=== PATIENT | female | born 1950 | race Caucasian/White ===

== ENCOUNTER → 2018-07-30 | Outpatient (CLI) | payer OTHER | END | disposition home or self-care (01) | LOC: OIH 14:28 | PROVIDERS: ATTEND Internal Medicine Cardiovascular Disease | DX: Z13.6 Encounter for screening for cardiovascular disorders (principal) | CPT/HCPCS: 75571 ==

== ENCOUNTER 2019-06-24 06:48 | Day surgery (SDC) | payer MEDICARE ==
[~2019-06-24] VITALS: Ht 172.7 cm; Wt 89.4 kg
[~2019-06-24 06:48] MED LIST: SODIUM CHLORIDE 0.9% 1000ML 1,000 ML IV ONE
[2019-06-24 07:56] VITALS: BP 142/67
[2019-06-24] MEDS ORDERED: LEVO75TA10 PO (08:16)
[2019-06-24] MEDS ORDERED: ESTR1TAB17 PO (08:16)
[2019-06-24] MEDS ORDERED: ZOLP5TAB2 PO (08:16)
[2019-06-24] MEDS ORDERED: DOCU50CA13 PO (08:16)
[2019-06-24] MEDS ORDERED: ANTIVERT PO (08:16)
[2019-06-24] MEDS ORDERED: MONT10TA26 PO (08:16)
[2019-06-24] MEDS ORDERED: APIX5TAB PO (08:16)
[2019-06-24] MEDS ORDERED: CRANBERRY PO (08:16)
[2019-06-24] MEDS ORDERED: METO25TA6 PO (08:16)
[2019-06-24] MEDS ORDERED: AMLO1TAB33 PO (08:16)
[2019-06-24] MEDS ORDERED: MAGN400C PO (08:16)
[2019-06-24] MEDS ORDERED: SOTA80TA PO (08:16)
[2019-06-24] MEDS ORDERED: CYAN-35 PO (08:16)
[2019-06-24] MEDS ORDERED: ROSU20TA23 PO (08:16)
[2019-06-24] MEDS ORDERED: POTA99TA21 PO (08:16)
[2019-06-24] MEDS ORDERED: CHOL200059 PO (08:16)
[2019-06-24] MEDS ORDERED: LORA-705 PO (08:16)
[2019-06-24] MEDS ORDERED: FURO-152 PO (08:16)
[2019-06-24] MEDS ORDERED: FOLIC ACID PO (08:16)
[2019-06-24] MEDS ORDERED: PROPOFOL 10 MG/ML 20ML VIAL IV ONE ×2 (09:07→09:46)
[2019-06-24 09:57] VITALS: BP 150/63
[2019-06-24 10:02] VITALS: BP 133/84
--- NOTE | 2019-06-24 10:02 | NUR ---
PER DR. BROWN PT IS TO STOP ELIQUES FOR 5 DAYS. PT TAKES ELIQUES FOR A-FIB, SPOUSE WAS INSTRUCTED TO CALL READING ASSISTANT TO MAKE HIM AWARE OF DR. BROWN ORDERS. SO, THAT BOTH DR'S ARE AWARE OF INSTRUCTIONS FOR ELIQUES..
[2019-06-24 10:07] VITALS: BP 152/80
[2019-06-24 10:12] VITALS: BP 146/87
--- NOTE | 2019-06-24 10:40 | NUR ---
PT LEFT VIA WHEELCHAIR IN PVT CAR, D/C INSTRUCTIONS GIVEN ALONG WITH RX SCRIPT AND F/U UP APPT. PT V/S STABLE WITH NO COMPLICATIONS UPON D/C.
== END 2019-06-24 10:40 | disposition home or self-care (01) ==
LOC: ENDO 06:48 → DAH 06:48 → ENDO 10:40
PROVIDERS: ATTEND Internal Medicine
DX: K92.1 Melena (principal); D12.0 Benign neoplasm of cecum; K29.50 Unspecified chronic gastritis without bleeding; J44.9 Chronic obstructive pulmonary disease, unspecified; G47.30 Sleep apnea, unspecified; I10 Essential (primary) hypertension; I48.0 Paroxysmal atrial fibrillation; M19.90 Unspecified osteoarthritis, unspecified site; E78.5 Hyperlipidemia, unspecified; E03.9 Hypothyroidism, unspecified; Z99.89 Dependence on other enabling machines and devices; Z85.118 Personal history of other malignant neoplasm of bronchus and lung; Z90.710 Acquired absence of both cervix and uterus; Z79.899 Other long term (current) drug therapy; Z98.890 Other specified postprocedural states
CPT/HCPCS: 43239; 45380; 88305; A4215; A4221; A4222; A4223; A4606; A4620; A4663; J2704 ×2; J7030

== ENCOUNTER → 2022-05-27 | Outpatient (CLI) | payer MEDICARE ==
[~2022-05-27] MED LIST changes: +ANTIVERT PO; +APIX5TAB PO; +CHOL200059 PO; +CRANBERRY PO; +CYAN-35 PO; +DOCU50CA13 PO; +ESTR1TAB17 PO; +FOLIC ACID PO; +FURO-152 PO; +LEVO75TA10 PO; +LORA-699 PO; +MAGN400C PO; +METO25TA6 PO; +MONT-39 PO; +POTA99TA26 PO; +ROSU20TA23 PO; -SODIUM CHLORIDE 0.9% 1000ML 1,000 ML IV ONE; +SOTA80TA PO; +ZOLP5TAB2 PO; +[UNRECOGNIZED DRUG - CODE] PO
== END | disposition home or self-care (01) ==
LOC: RAH 10:00
PROVIDERS: ATTEND Student in an Organized Health Care Education/Training Program
DX: M19.012 Primary osteoarthritis, left shoulder (principal); M25.712 Osteophyte, left shoulder; M25.512 Pain in left shoulder
CPT/HCPCS: 73221

== ENCOUNTER 2023-03-10 07:23 | Day surgery (SDC) | payer MEDICARE ==
[2023-03-03 11:57] VITALS: BP 143/90; PULSE 63; RESP 20
[2023-03-03 11:58] LABS: BASOPHILS # (AUTO) 0.04 K/uL (0.00-0.20); BASOPHILS % (AUTO) 0.6 % (0.0-5.0); EOSINOPHILS # (AUTO) 0.23 K/uL (0.00-0.70); EOSINOPHILS % (AUTO) 3.4 % (0.0-8.0); HEMATOCRIT 42.3 % (36-48); IMMATURE GRANULOCYTE ABSOLUTE 0.04 K/uL (0-1); LYMPHOCYTES # (AUTO) 1.9 K/uL (1.0-4.8); LYMPHOCYTES % (AUTO) 27.9 % (21.0-51.0); MEAN CORPUSCULAR HEMOGLOBIN 30.3 pg (27.0-33.0); MEAN CORPUSCULAR HGB CONC 32.9 g/dL (32.0-36.0); MEAN CORPUSCULAR VOLUME 92.2 fL (79-99); MONOCYTES # (AUTO) 0.6 K/uL (0.1-1.0); MONOCYTES % (AUTO) 9.4 % (3.0-13.0); NEUTROPHILS # (AUTO) 3.9 K/uL (1.8-7.7); NEUTROPHILS % (AUTO) 58.1 % (40.0-77.0); PLATELET COUNT (AUTO) 254 K/uL (130-400); RED BLOOD CELL COUNT(AUTO) 4.59 MIL/uL (4.00-5.50); RED CELL DISTRIBUTION WIDTH 12.8 % (11.0-15.5); WHITE BLOOD COUNT (AUTO) 6.8 K/uL (4.8-10.8)
[2023-03-03 12:04] LABS: CREATININE 0.7 mg/dL (0.5-1.5); POTASSIUM 4.2 mmol/L (3.5-5.1)
[2023-03-03 12:08] LABS: INR < 0.93 (0.85-1.15); PROTHROMBIN TIME 10.8 SEC (9.6-11.6)
[2023-03-03 12:09] LABS: PARTIAL THROMBOPLASTIN TIME 28.8 SEC (26.3-35.5)
[~2023-03-10] VITALS: Ht 172.7 cm; Wt 92.2 kg
[2023-03-10] VITALS (18 sets, daily range): BP systolic 133–168; BP diastolic 60–88; PULSE 65–85; RESP 17–23
[~2023-03-10 07:23] MED LIST changes: +PHARMACY COMMUNICATION MISC SCH
[2023-03-10] MEDS ORDERED: PHARMACY COMMUNICATION MISC SCH (08:30)
[2023-03-10] MEDS ORDERED: SUCCINYLCHOLINE CHLORIDE 20 MG/ML 10 ML VIAL ONE (11:44)
[2023-03-10] MEDS ORDERED: DEXAMETHASONE SOD PHOSPHATE 10MG/ML 1ML VIAL ONE (11:44)
[2023-03-10] MEDS ORDERED: PROPOFOL 10 MG/ML 20ML VIAL IV ONE (11:44)
[2023-03-10] MEDS ORDERED: CEFAZOLIN SODIUM 2 GM VIAL ONE ×2 (11:44→15:53)
[2023-03-10] MEDS ORDERED: MIDAZOLAM HCL 1 MG/ML 2ML VIAL ONE (11:44)
[2023-03-10] MEDS ORDERED: GLYCOPYRROLATE 1 MG/5 ML SYRINGE ONE (11:44)
[2023-03-10] MEDS ORDERED: LIDOCAINE PF 100MG/5ML (2%) SYRINGE 5ML ONE (11:44)
[2023-03-10] MEDS ORDERED: LACTATED RINGERS 1000ML 1,000 ML IV ONE (11:44)
[2023-03-10] MEDS ORDERED: NEOSTIGMINE 5MG/5ML SYR IV ONE (11:45)
[2023-03-10] MEDS ORDERED: ROCURONIUM 10MG/1ML SYR 10 MG/ML ML ONE ×2 (11:45→16:20)
[2023-03-10] MEDS ORDERED: ONDANSETRON 4MG INJ ONE ×3 (11:45→17:04)
[2023-03-10] MEDS ORDERED: FENTANYL CITRATE PF 50 MCG/1 ML 2ML VIAL ONE ×2 (11:46→18:25)
[2023-03-10] MEDS ORDERED: CRAN1CAP5 PO (11:54)
[2023-03-10] MEDS ORDERED: AMLO-257 PO (11:54)
[2023-03-10] MEDS ORDERED: FAMO20TA8 PO (11:54)
[2023-03-10] MEDS ORDERED: RIVA20TA PO (11:54)
[2023-03-10] MEDS ORDERED: CHOL500045 PO (11:54)
[2023-03-10] MEDS ORDERED: EXEM25TA PO (11:54)
[2023-03-10] MEDS ORDERED: ZINC50TA15 PO (11:54)
[2023-03-10] MEDS ORDERED: SENN-306 PO ×2 (11:54)
[2023-03-10] MEDS ORDERED: ACET-2247 PO (11:54)
[2023-03-10] MEDS ORDERED: LUTE1CAP4 PO (11:54)
[2023-03-10] MEDS ORDERED: OLME40TA18 PO (11:54)
[2023-03-10] MEDS ORDERED: VITA-395 PO (11:54)
[2023-03-10] MEDS ORDERED: ROPIVACAINE 0.5% 5MG/ML 30ML IJ ONE ×3 (12:11→14:30)
[2023-03-10] MEDS ORDERED: CEFAZOLIN SODIUM 2 GM VIAL IVPB ONE (13:00)
[2023-03-10] MEDS ORDERED: LIDOCAINE HCL/EPINEPHRINE 50 ML VIAL IJ ONE (13:00)
[2023-03-10] MEDS ORDERED: CEFAZOLIN SODIUM 1 GM VIAL ONE (13:14)
[2023-03-10] MEDS ORDERED: FENTANYL CITRATE PF 50 MCG/1 ML 5ML AMP IV ONE (13:17)
[2023-03-10] MEDS ORDERED: BUPIVACAINE LIPOSOME/PF 266 MG/20 ML IJ ONE ×3 (14:00)
[2023-03-10] MEDS ORDERED: CLINDAMYCIN IVPB 600MG/50ML 50 ML IV ONE ×2 (14:14→15:53)
[2023-03-10] MEDS ORDERED: LIDOCAINE 1%-EPI 1:100,000 20 ML VIAL IJ ONE (14:30)
[2023-03-10] MEDS ORDERED: BUPIVACAINE LIPOSOME/PF 266 MG/20 ML ML IJ ONE (14:30)
[2023-03-10] MEDS ORDERED: CEFAZOLIN SODIUM 2 GM VIAL IJ ONE (14:30)
[2023-03-10] MEDS ORDERED: SUGAMMADEX SODIUM 200 MG/2 ML VIAL IV ONE (17:11)
[2023-03-10] MEDS ORDERED: KETOROLAC 30MG VIAL (30MG/ML) IVP ONE (18:10)
[2023-03-10] MEDS ORDERED: FENTANYL CITRATE PF 50 MCG/1 ML 2ML VIAL IVP ONE (18:10)
== END 2023-03-10 20:30 | disposition home or self-care (01) ==
LOC: DAH 07:23
PROVIDERS: ATTEND Surgery
DX: C50.411 Malignant neoplasm of upper-outer quadrant of right female breast (principal); I48.91 Unspecified atrial fibrillation; M19.90 Unspecified osteoarthritis, unspecified site; I10 Essential (primary) hypertension; E66.9 Obesity, unspecified; Z68.30 Body mass index [BMI] 30.0-30.9, adult; Z87.01 Personal history of pneumonia (recurrent); Z82.49 Family history of ischemic heart disease and other diseases of the circulatory system; Z80.9 Family history of malignant neoplasm, unspecified; Z79.899 Other long term (current) drug therapy; Z90.710 Acquired absence of both cervix and uterus; Z98.890 Other specified postprocedural states
CPT/HCPCS: 19303; A4221; A4222; A4223; A4600; A4663; A5120; C9290; J0330; J0690; J1100; J2001; J2250; J2405; J2704; J2710; J2795; J3010; J3490; J7120; 36415; 80048; 85025; 85610; 85730; 88307; 93005; A4344; J7030; A4215; A4216; A4649; A4930; A6209; A6260; A6446; A9272; G0168; L8600

== ENCOUNTER 2023-09-09 12:00 | Observation (INO) | payer MEDICARE ==
[~2023-09-09] VITALS: Ht 172.7 cm; Wt 88.2 kg
[~2023-09-09 12:00] MED LIST changes: +AMLO-257 PO; -ANTIVERT PO; -APIX5TAB PO; -CHOL200059 PO; +CHOL500045 PO; +CRAN1CAP5 PO; -CRANBERRY PO; -CYAN-35 PO; -DOCU50CA13 PO; -ESTR1TAB17 PO; +FAMO20TA8 PO; -FOLIC ACID PO; +LUTE1CAP4 PO; -METO25TA6 PO; -MONT-39 PO; +OLME40TA18 PO; -PHARMACY COMMUNICATION MISC SCH; +SENN-306 PO; +ZINC50TA15 PO; -[UNRECOGNIZED DRUG - CODE] PO
[2023-09-09 13:32] LABS: BASOPHILS # (AUTO) 0.04 K/uL (0.00-0.20); BASOPHILS % (AUTO) 0.6 % (0.0-5.0); EOSINOPHILS # (AUTO) 0.17 K/uL (0.00-0.70); EOSINOPHILS % (AUTO) 2.4 % (0.0-8.0); HEMATOCRIT 43.6 % (36-48); IMMATURE GRANULOCYTE ABSOLUTE 0.02 K/uL (0-1); LYMPHOCYTES # (AUTO) 1.9 K/uL (1.0-4.8); MEAN CORPUSCULAR HEMOGLOBIN 30.6 pg (27.0-33.0); MEAN CORPUSCULAR HGB CONC 34.2 g/dL (32.0-36.0); MEAN CORPUSCULAR VOLUME 89.5 fL (79-99); MONOCYTES # (AUTO) 0.6 K/uL (0.1-1.0); MONOCYTES % (AUTO) 8.1 % (3.0-13.0); NEUTROPHILS # (AUTO) 4.4 K/uL (1.8-7.7); NEUTROPHILS % (AUTO) 61.6 % (40.0-77.0); PLATELET COUNT (AUTO) 280 K/uL (130-400); RED BLOOD CELL COUNT(AUTO) 4.87 MIL/uL (4.00-5.50); RED CELL DISTRIBUTION WIDTH 12.6 % (11.0-15.5); WHITE BLOOD COUNT (AUTO) 7.1 K/uL (4.8-10.8)
[2023-09-09 13:35] VITALS: BP 154/65; PULSE 72; RESP 18
[2023-09-09 13:46] LABS: INR 0.96 (0.85-1.15); PROTHROMBIN TIME 11.4 SEC (9.6-11.6)
[2023-09-09 13:47] LABS: PARTIAL THROMBOPLASTIN TIME 30.8 SEC (26.3-35.5)
[2023-09-09 13:48] LABS: ALBUMIN 4.3 g/dL (3.5-5.0); CARBON DIOXIDE 29 mmol/L (21-32); CHLORIDE 102 mmol/L (101-111); CREATININE 0.8 mg/dL (0.5-1.0); GLOMERULAR FILTR. RATE CALC 78 mL/min (>90); GLUCOSE,RANDOM 107 mg/dL (70-105); SODIUM SERUM 137 mmol/L (136-145); UREA NITROGEN, BLOOD 13 mg/dL (7-18)
[2023-09-09] MEDS ORDERED: TYLENOL ARTHRITIS PO (13:55)
[2023-09-09] MEDS ORDERED: RIVA20TA PO (13:55)
[2023-09-09] MEDS ORDERED: METO-408 PO (13:55)
[2023-09-09 14:11] LABS: APPEARANCE,URINE CLEAR (CLEAR); BILIRUBIN,URINE NEGATIVE (NEGATIVE); COLOR,URINE YELLOW (YELLOW); GLUCOSE, URINE (UA) NEGATIVE (NEGATIVE); KETONES,URINE NEGATIVE (NEGATIVE); LEUKOCYTE ESTERASE ,URINE MODERATE Leu/uL (NEGATIVE); NITRATE,URINE NEGATIVE (NEGATIVE); OCCULT BLOOD,URINE NEGATIVE (NEGATIVE); PROTEIN,URINE NEGATIVE (NEGATIVE); UROBILINOGEN,URINE 0.2 mg/dL (0.2-1.0)
[2023-09-09 14:25] LABS: ADD UA MICROSCOPIC YES
[2023-09-09 14:28] LABS: BACTERIA,URINE RARE /HPF (None Seen); CALCIUM OXALATE CRYSTALS,UR RARE /LPF (None Seen); MUCUS,URINE RARE LPF (None Seen); NON-SQUAMOUS EPITHELIAL CELL 1 /HPF (0-2); SQUAMOUS EPITHELIAL CELL,UR RARE /HPF (0-2); UNCLASSIFIED CRYSTAL 4 /HPF (None Seen); WBC,URINE 26-50 /HPF (0-1); YEAST,URINE BUDDING RARE /HPF (None Seen)
[2023-09-09] MEDS ORDERED: VITA100059 PO (14:42)
[2023-09-09] MEDS ORDERED: FOLATE PO (14:42)
[2023-09-14] VITALS (22 sets, daily range): BP systolic 133–158; BP diastolic 61–81; PULSE 52–66; RESP 12–18
[2023-09-14] MEDS ORDERED: BUPIVACAINE LIPOSOME/PF 266 MG/20 ML ML IJ ONE (06:00)
[2023-09-14] MEDS ORDERED: CEFAZOLIN SODIUM 2 GM VIAL ONE (07:07)
[2023-09-14] MEDS ORDERED: VITA400T9 PO (08:25)
[2023-09-14] MEDS: LACTATED RINGERS 1000ML 1,000 ML IV ONE (08:26)
[2023-09-14] MEDS ORDERED: TRANEXAMIC ACID 1000MG/10ML ONE (09:11)
[2023-09-14] MEDS ORDERED: KETOROLAC 30MG VIAL (30MG/ML) ONE ×2 (09:11→11:33)
[2023-09-14] MEDS ORDERED: ROPIVACAINE 0.5% 5MG/ML 30ML ONE (09:11)
[2023-09-14] MEDS ORDERED: PROPOFOL 10 MG/ML 20ML VIAL IV ONE (09:12)
[2023-09-14] MEDS ORDERED: ONDANSETRON 4MG INJ ONE (09:12)
[2023-09-14] MEDS ORDERED: MIDAZOLAM HCL 1 MG/ML 2ML VIAL ONE (09:13)
[2023-09-14] MEDS ORDERED: ROCURONIUM BROMIDE 10MG/1ML 5ML VL ONE ×2 (09:13→10:20)
[2023-09-14] MEDS: CEFAZOLIN SODIUM 2 GM VIAL IVPB ONE (10:30)
[2023-09-14] MEDS: BUPIVACAINE LIPOSOME/PF 266 MG/20 ML ML IJ ONE ×2 (10:30→11:38)
[2023-09-14] MEDS ORDERED: FENTANYL CITRATE PF 50 MCG/1 ML 2ML VIAL ONE ×2 (10:56→12:40)
[2023-09-14] MEDS ORDERED: GLYCOPYRROLATE 0.2 MG/ML 5 ML VIAL ONE (12:36)
[2023-09-14] MEDS ORDERED: NEOSTIGMINE METHYLSULFATE 1MG/ML IV ONE (12:36)
[2023-09-14] MEDS ORDERED: CYCL5TAB PO (12:51)
[2023-09-14] MEDS ORDERED: GABA-529 PO (12:51)
[2023-09-14] MEDS ORDERED: CELE100 PO (12:51)
[2023-09-14] MEDS ORDERED: ASPI-1012 PO (12:51)
[2023-09-14] MEDS: ACETAMINOPHEN 1,000 MG/100 ML VIAL IV ONE (13:12)
[2023-09-14] MEDS: ONDANSETRON 4MG INJ ONE (14:01)
== END 2023-09-14 15:55 | disposition home health service (06) ==
LOC: DAHIP 09-14 06:59
PROVIDERS: ADMIT Student in an Organized Health Care Education/Training Program; ATTEND Student in an Organized Health Care Education/Training Program
DX: M17.12 Unilateral primary osteoarthritis, left knee (principal); J44.9 Chronic obstructive pulmonary disease, unspecified; E78.5 Hyperlipidemia, unspecified; I48.91 Unspecified atrial fibrillation; Z88.5 Allergy status to narcotic agent; Z79.899 Other long term (current) drug therapy
CPT/HCPCS: 96374; 82040; 80048; 85025; 85610; 85730; 87088; 84134; 86140; 81001; 36415; 87641; 27447; 97161; 97116; 97530 ×3; G0378 ×5; G0379; C9290 ×3; A4663; A4215 ×2; J7120; J3010 ×2; J3490 ×6; J2250; J2704; J2405 ×2; J1885 ×3; J2710; J2795; J0690 ×2; C1713 ×2; G0168; C1776 ×2; A4649 ×3; A6255; A5120; A4223; A4213; A4222; A4221; G8980-CJ; G8983-CJ